=== PATIENT | female | born 1945 | race Caucasian/White ===

== ENCOUNTER 2017-07-12 13:03 | Outpatient (CLI) | payer OTHER ==
--- NOTE | 2017-07-12 15:37 | XRAY Report ---
DATE OF SERVICE: 07/12/2017 FOUR VIEW LEFT WRIST: 07/12/2017 CLINICAL INDICATION: Pain. FINDINGS: AP, lateral, oblique, scaphoid views of the left wrist demonstrate mild osteoarthritis in the first carpometacarpal joint and radiocarpal row. There is a small enthesophyte arising from the radial margin of the scaphoid, best seen on the scaphoid view. There is no evidence of acute fracture or dislocation. No foreign body is seen in the soft tissues. IMPRESSION: OSTEOARTHRITIC CHANGES. SMALL ENTHESOPHYTE ARISING FROM THE LATERAL MARGIN OF THE SCAPHOID. TD: 07/12/2017 16:36
== END 2017-07-12 13:04 | disposition home or self-care (01) ==
LOC: DI 13:03
PROVIDERS: ATTEND Nurse Practitioner Family
DX: M18.12 Unilateral primary osteoarthritis of first carpometacarpal joint, left hand (principal); M19.032 Primary osteoarthritis, left wrist

== ENCOUNTER 2017-12-24 18:16 | Emergency (ER) | payer MEDICARE, OTHER ==
[2017-12-24 18:24] VITALS: BP 110/68
--- NOTE | 2017-12-24 18:46 | ED Physician Documentation ---
PD HPI UPPER EXT INJURY - Stated complaint Stated Complaint: L FINGER LAC - Chief complaint Chief Complaint: Laceration - History obtained from History obtained from: Patient - History of Present Illness Location: Other (Right-handed woman who is up-to-date on tetanus cut the dorsum of her left index and middle fingers while cutting a piece of bread with a knife just prior to arrival at home.) - Additonal information Additional information: Of note she is also had 4 days of a dry cough with shortness of breath and fevers some throat pain and ear fullness as well as sinus pressure on the left. Review of Systems Constitutional: reports: Fever, Reviewed and negative Nose: reports: Rhinorrhea / runny nose, Congestion Throat: reports: Reviewed and negative Cardiac: reports: Reviewed and negative Respiratory: reports: Dyspnea, Cough GI: denies: Abdominal Pain PD PAST MEDICAL HISTORY - Past Medical History Past Medical History: No - Past Surgical History Past Surgical History: No - Present Medications Home Medications: Ambulatory Orders Medication Instructions Recorded Confirmed Alendronate [Fosamax] 70 mg PO Q7D 12/24/17 12/24/17 Anastrozole [Anastrozole] 1 mg ORAL DAILY 12/24/17 12/24/17 Azithromycin [Zithromax] 250 mg PO DAILY #4 tablet 12/24/17 guaiFENesin/CODEINE [Robitussin AC] 5 - 10 ml PO Q6H PRN #120 ml 12/24/17 - Allergies Allergies/Adverse Reactions: Allergies Allergy/AdvReac Type Severity Reaction Status Date / Time Penicillins Allergy Hives Verified 12/24/17 18:25 Sulfa (Sulfonamide Allergy Hives Verified 12/24/17 18:25 Antibiotics) dairy Allergy Anaphylaxis Uncoded 12/24/17 18:25 - Social History Does the pt smoke?: No Smoking Status: Never smoker Does the pt drink ETOH?: No Does the pt have substance abuse?: No - Immunizations Immunizations are current?: Yes - POLST Patient has POLST: No PD ED PE NORMAL - Vitals Vital signs reviewed: Yes - General General: Alert and oriented X 3, No acute distress - HEENT HEENT: Ears normal, Pharynx benign, Other (Tender left maxillary sinus) - Cardiac Cardiac: RRR, No murmur - Respiratory Respiratory: No respiratory distress, Other (Mild rhonchi left side) - Extremities Extremities: Other (On the left third finger there is just a neck of the distal finger, but she has a significant laceration over the dorsum of the second finger at the level of the DIP which is profusely bleeding but she is intact sensation on both sides of the tip. Extensor tendon function will be assessed during laceration repair after anesthetic.) - Neuro Neuro: Alert and oriented X 3, Normal speech Results - Vitals Vitals: Vital Signs - 24 hr 12/24/17 18:22 Temperature 36.5 C Heart Rate 67 Respiratory 16 Rate Blood Pressure 110/68 O2 Saturation 97 Oxygen O2 Source Room air Procedures - Laceration (location) Left second finger Length in cm: 2 Wound type: Linear Neurovascular status: Sensory intact, Motor intact, Vascular intact Tendon involvement: Tendon intact Anesthesia: Lidocaine 1%, With bicarb Wound Preparation: Irrigated copiously NS Skin layer closure: Nylon, Interrupted, Size #-0 - enter number (5-0) Other: Patient tolerated well, No complications, Neurovascular intact, Tetanus UTD Complexity: Simple PD MEDICAL DECISION MAKING - ED course ED course: Finger laceration was closed, no evidence of tendon injury. She also has sinusitis. Not given amoxicillin/Augmentin because of penicillin allergy. - Sepsis Event Vital Signs: Vital Signs - 24 hr 12/24/17 18:22 Temperature 36.5 C Heart Rate 67 Respiratory 16 Rate Blood Pressure 110/68 O2 Saturation 97 Oxygen O2 Source Room air Departure - Departure Disposition: 01 Home, Self Care Clinical Impression: Left maxillary sinusitis, Laceration Condition: Good Record reviewed to determine appropriate education?: Yes Instructions: ED Sinusitis Abx Tx, ED Laceration Hand Prescriptions: Azithromycin [Zithromax] 250 mg PO DAILY #4 tablet guaiFENesin/CODEINE [Robitussin AC] 5 - 10 ml PO Q6H PRN #120 ml PRN Reason: Cough Comments: Come back for any signs of infection which would include: Redness, swelling, drainage, increased pain, or fevers. Follow-up with your physician in 14 days for suture removal.
[2017-12-24] MEDS ORDERED: BUFFERED LIDOCAINE 10 ML SYRINGE ONE (18:57)
[2017-12-24] MEDS ORDERED: AZITHROMYCIN 250 MG TABLET PO STA (19:08)
[2017-12-24] MEDS ORDERED: guaiFENesin/CODEINE 5 ML UDC PO STA (19:08)
== END 2017-12-24 19:20 | disposition home or self-care (01) ==
LOC: ED 18:16
DX: S61.211A Laceration without foreign body of left index finger without damage to nail, initial encounter (principal); W26.0XXA Contact with knife, initial encounter; Y93.G1 Activity, food preparation and clean up; Y92.009 Unspecified place in unspecified non-institutional (private) residence as the place of occurrence of the external cause; J32.0 Chronic maxillary sinusitis
CPT/HCPCS: 12001; 99281; 99283; A9270

== ENCOUNTER 2023-05-17 10:42 | Outpatient (CLI) | payer MEDICARE ==
--- NOTE | 2023-05-17 19:18 | Ultrasound Report ---
PROCEDURE: Aorta Screening INDICATIONS: [facility] CARDIOVASCULAR DISEASE TECHNIQUE: Real time scanning was performed of the aorta and iliac arteries, with image documentatio n. COMPARISON: None. FINDINGS: Aorta: Proximal aortic diameter measures 2.3 x 2.4 cm. Mid-aorta measures 2.2 x 2.2 cm. Distal aor tic diameter is 1.6 x 1.8 cm. Iliac arteries: Right common iliac artery measures 1.1 x 1.2 cm. Left common iliac artery measures 1.2 x 1.4 cm. IMPRESSION: Unremarkable ultrasound of the abdominal aorta. No aneurysm. Recommended intervals for follow-up imaging of ectatic aortas and abdominal aortic aneurysms, per ACR consensus guidelines: 2.5-2.9 cm: 5 years 3.0-3.4 cm: 3 years 3.5-3.9 cm: 2 years 4.0-4.4 cm: 1 year 4.5-4.9 cm: 6 months + endovascular referral 5.0-5.5 cm: 3-6 months + endovascular referral Reviewed by: John Rosario MD on 05/17/2023 6:16 PM [place] Approved by: John Rosario MD on 05/17/2023 6:16 PM [place] Station ID: [id number]
== END 2023-05-17 10:43 | disposition home or self-care (01) ==
LOC: DI 10:42
PROVIDERS: ATTEND Registered Nurse
DX: Z82.49 Family history of ischemic heart disease and other diseases of the circulatory system (principal)